=== PATIENT | female | born 1995 | race Caucasian/White ===

== ENCOUNTER 2024-07-10 09:16 | Emergency (ER) | payer OTHER ==
[~2024-07-10] VITALS: Ht 157.5 cm; Wt 59.0 kg
[2024-07-10] MEDS ORDERED: Doxycycline Hyclate 100 MG TAB PO ONE (10:25)
[2024-07-10] MEDS ORDERED: Ketorolac Tromethamine 30mg Vial IM ONE (10:25)
== END 2024-07-10 10:51 | disposition home or self-care (01) ==
LOC: ER 09:16
DX: S40.261A Insect bite (nonvenomous) of right shoulder, initial encounter (principal); M25.511 Pain in right shoulder
CPT/HCPCS: 96372; 99283-25; A9270; J1885